=== PATIENT | male | born 1965 | race Two or more races ===

== ENCOUNTER 2017-10-09 16:33 | Emergency (ER) | payer MEDICARE ==
[2017-10-09] MEDS ORDERED: Ketorolac 60 MG/2 ML SDV IM ONE (16:54)
--- NOTE | 2017-10-09 18:00 | EDM.PDOC ---
ED HPI GENERAL MEDICAL PROBLEM - General Chief Complaint: Lower Extremity Injury/Pain Stated Complaint: LEG PAIN Time Seen by Provider: 10/09/17 16:46 Source of Information: Reports: Patient, Family History Limitations: Reports: Language Barrier - History of Present Illness INITIAL COMMENTS - FREE TEXT/NARRATIVE: 52 years old w m with h/o gout, on Allupurinol, came with his family to the ed due to pain of his r knee. Pt has a h/o right knee gout arthritis. Pt was in the this ED before for same. No F/C N/V or any other acute medical issues. 163/ 109 pulse 63. Pt takes BP meds. Onset: Today Onset Date: 10/08/17 Onset Time: 08:00 Duration: Hour(s):, Intermittent Location: Reports: Lower Extremity, Right Quality: Reports: Burning, Dull, Pressure Severity: Moderate Improves with: Reports: Rest Worsens with: Reports: Movement Context: Reports: Other (H/O Knee gout) Associated Symptoms: Reports: No Other Symptoms Right Knee Pain Score (Numeric/FACES): 10 - Related Data Allergies Allergy/AdvReac Type Severity Reaction Status Date / Time No Known Allergies Allergy Verified 10/09/17 16:44 Home Meds: Home Meds Lisinopril [Lisinopril] 40 mg PO DAILY 02/12/14 [History] Metoprolol Tartrate [Lopressor] 25 mg PO DAILY 02/12/14 [History] Acetaminophen [Tylenol Extra Strength] 500 mg PO Q4HR PRN 11/05/16 [History] Allopurinol [Zyloprim] 300 mg PO DAILY 11/05/16 [History] Warfarin Sodium 5 mg PO DAILY 11/05/16 [History] atorvaSTATin [Lipitor] 10 mg PO BEDTIME 11/05/16 [History] Prednisone [IMW: predniSONE] 20 mg PO WITHBREAKFAST 10/09/17 [History] Past Medical History Cardiovascular History: Reports: High Cholesterol, Hypertension Neurological History: Reports: Brain Injury Social & Family History - Tobacco Use Smoking Status *Q: Never Smoker - Caffeine Use Caffeine Use: Reports: Coffee, Soda - Alcohol Use Days Per Week of Alcohol Use: 0 - Recreational Drug Use Recreational Drug Use: No Review of Systems - Review of Systems Review Of Systems: See Below Constitutional: Reports: No Symptoms Eyes: Reports: No Symptoms Ears: Reports: No Symptoms Nose: Reports: No Symptoms Mouth/Throat: Reports: No Symptoms Respiratory: Reports: No Symptoms Cardiovascular: Reports: No Symptoms GI/Abdominal: Reports: No Symptoms Genitourinary: Reports: No Symptoms Musculoskeletal: Reports: No Symptoms Skin: Reports: No Symptoms Neurological: Reports: No Symptoms Psychiatric: Reports: No Symptoms ED EXAM, GENERAL - Physical Exam Exam: See Below Exam Limited By: No Limitations General Appearance: Alert, WD/WN, Mild Distress Eye Exam: Bilateral Eye: Normal Inspection Ears: Normal External Exam Ear Exam: Bilateral Ear: Auricle Normal Nose: Normal Inspection, Normal Mucosa Throat/Mouth: Normal Inspection, Normal Lips Head: Atraumatic, Normocephalic Neck: Normal Inspection, Supple, Non-Tender, Full Range of Motion Respiratory/Chest: No Respiratory Distress, Lungs Clear, Normal Breath Sounds, No Accessory Muscle Use Cardiovascular: Normal Peripheral Pulses, Regular Rate, Rhythm, No Edema Peripheral Pulses: 1+: Femoral (R) GI/Abdominal: Normal Bowel Sounds, Soft, Non-Tender, No Organomegaly (Male) Exam: Deferred Rectal (Males) Exam: Deferred Back Exam: Normal Inspection, Full Range of Motion Extremities: Normal Inspection, Limited Range of Motion (of right knee due to pain, no swellig, no redness) Neurological: Alert, Oriented, CN II-XII Intact, Normal Cognition, Normal Reflexes Psychiatric: Normal Affect, Normal Mood Skin Exam: Warm, Dry, Intact, Normal Color Lymphatic: No Adenopathy Course - Vital Signs Text/Narrative:: 52 years old w m with h/o gout, on Allupurinol, came with his family to the ed due to pain of his r knee. Pt has a h/o right knee gout arthritis. Pt was in the this ED before for same. No F/C N/V or any other acute medical issues. 163/ 109 pulse 63. Pt takes BP meds. PE: R knee tender decr. ROM, Impression: acute gout right knee. Tx: Toradol i.m. Reexam: 100% improved,no swelling , FROM, ambulates well Plan: D/C with instructions Last Recorded V/S: Last Vital Signs Temp 36.7 C 10/09/17 16:46 Pulse 65 10/09/17 18:15 Resp 18 10/09/17 16:46 BP 149/92 H 10/09/17 18:15 Pulse Ox 100 10/09/17 16:46 - Orders/Labs/Meds Meds: Medications Discontinued Medications Generic Name Dose Route Start Last Admin Trade Name Kevin PRN Reason Stop Dose Admin Ketorolac Tromethamine 60 mg 10/09/17 16:54 10/09/17 17:03 Toradol IM 10/09/17 16:55 60 mg ONETIME ONE Administration Departure - Departure Time of Disposition: 18:00 Disposition: Home, Self-Care 01 Condition: Good Clinical Impression: Gout of knee Qualifiers: Encounter type: subsequent encounter Chronicity: acute Laterality: right - Discharge Information Referrals: Maggie Gutierres [employer] REMOVALIST'S ASSISTANT [Primary Care Provider] - Forms: ED Department Discharge Additional Instructions: Please cont your meds, please f/u with your PMD for medication dose adjustment, please come back if your symptoms get worse acutely
[2017-10-09 18:17] VITALS: BP 149/92
== END 2017-10-09 18:15 | disposition home or self-care (01) ==
LOC: FB.ED 16:33
DX: M10.9 Gout, unspecified (principal); I10 Essential (primary) hypertension; E78.00 Pure hypercholesterolemia, unspecified; Z79.899 Other long term (current) drug therapy
CPT/HCPCS: 96372; 99283; J1885